=== PATIENT | female | born 1985 | race Caucasian/White ===

== ENCOUNTER 2024-04-25 11:09 | Emergency (ER) | payer OTHER, SELFPAY ==
[2024-04-25 11:14] VITALS: BP 136/74
[2024-04-25] MEDS: XANAX 0.5 MG PO (12:28)
--- NOTE | 2024-04-25 12:51 | ED.GENMED ---
History of Present Illness
<DO Jimi Fuentes Last Filed: 04/25/24 13:06>
General
Chief Complaint: Anxiety
Time Seen by Provider: 04/25/24 11:53
<CHARLES Snow Jr. Last Filed: 04/25/24 13:36>
General
Source: patient
Exam Limitations: none
Nursing documentation reviewed up to this point in time: agreed with
History of Present Illness
History of Present Illness:
38-year-old female presenting to the emergency department today with concerns of feeling anxious over the past few months off and on worsening over the past day has had some chest tightness and shortness of breath but believes this is likely from
anxiety. Denies any nausea vomiting or recent illness. Does have a history of anxiety.
Review of Systems
<CHARLES Snow Jr. Last Filed: 04/25/24 13:36>
Review of Systems
Allergies reviewed?: Yes
All Other Systems: ROS reviewed and negative except as documented in HPI and ROS
Phy Exam
<CHARLES Snow Jr. Last Filed: 04/25/24 13:36>
Physical Exam
Physical Exam:
GENERAL: Alert , in no apparent distress
EYE: pupils equal and reactive
NECK: Supple, no significant adenopathy.
ENT: o/p clr, mmm.
CARDIAC: Regular rate and rhythm .
LUNGS: Clear breath sounds bilaterally, no acute respiratory distress, no wheezes/rales/rhonchi
ABDOMEN: Soft, without focal tenderness, no r/g, no cvat
NEUROLOGICAL: Alert and oriented, no focal neuro deficits
SKIN: Warm and dry, skin intact.
MUSCULOSKELETAL: No edema, well perfused.
PSYCH: Normal and appropriate interaction.
Course
<DO Jimi Fuentes Last Filed: 04/25/24 13:06>
Orders/Labs/Results
Orders:
Orders
04/25/24 11:09
Electrocardiogram (*1) Urgent
Reason for Study: Shortness of Breath
EKG- Treatment ONCE
04/25/24 12:03
Alprazolam [Xanax] 0.5 mg PO NOW STA
Vital Signs
Initial and Last Documented VS:
Initial Vital Signs
Temp Pulse Resp BP Pulse Ox
97.9 F 74 16 136/74 98
04/25/24 11:14 04/25/24 11:14 04/25/24 11:14 04/25/24 11:14 04/25/24 11:14
Last Documented Vital Signs
Temp Pulse Resp BP Pulse Ox
97.9 F 74 18 136/74 98
04/25/24 11:14 04/25/24 11:14 04/25/24 12:30 04/25/24 11:14 04/25/24 11:14
<Gerry Urbano Jr., PA-C - Last Filed: 04/25/24 13:36>
Orders/Labs/Results
Orders:
Orders
04/25/24 11:09
Electrocardiogram (*1) Urgent
Reason for Study: Shortness of Breath
EKG- Treatment ONCE
04/25/24 12:03
Alprazolam [Xanax] 0.5 mg PO NOW STA
Vital Signs
Initial and Last Documented VS:
Initial Vital Signs
Temp Pulse Resp BP Pulse Ox
97.9 F 74 16 136/74 98
04/25/24 11:14 04/25/24 11:14 04/25/24 11:14 04/25/24 11:14 04/25/24 11:14
Last Documented Vital Signs
Temp Pulse Resp BP Pulse Ox
97.9 F 74 18 136/74 98
04/25/24 11:14 04/25/24 11:14 04/25/24 12:30 04/25/24 11:14 04/25/24 11:14
<Gerry Urbano Jr., PA-C - Last Filed: 04/25/24 13:36>
MDM/Problems Addressed
MDM/Problems Addressed:
38-year-old female presenting to the emergency department today with concerns of anxiety. Given a dose of Xanax here with improvement of symptoms. EKG normal no evidence of emergent pathology advised for close outpatient follow-up return
precautions given.
<Gerry Urbano Jr., PA-C - Last Filed: 04/25/24 13:36>
*Critical Care Note
Total Time (30-74mins, 75-104mins- exclusive of procedures): Not Applicable
ED Attending Note
<Dayne Price DO - Last Filed: 04/25/24 13:06>
-
Portions of this chart may have been created with voice recognition software.� Occasional wrong word or��sound alike� substitutions may have occurred due to the inherent limitations of voice recognition software.
Discharge Plan
Departure
Patient Disposition: Home (Routine Discharge)
Date of Disposition: 04/25/24
Time of Disposition: 13:31
Patient with high blood pressure during this ER visit?: No
Condition: Good
Covid-19: Not Applicable
Discharge Problem:
Anxiety
Instructions: Anxiety, Adult (DC)
Prescriptions:
New
Paxlovid 300 mg (150 mg x 2)-100 mg tablets,dose pack
See Rx Instructions .ROUTE .COMPLEX Qty: 30 0RF
Rx Instructions:
take TWO 150 mg tablets of nirmatrelvir with ONE 100 mg tablet of ritonavir twice daily for 5 days
alprazolam [Xanax] 0.5 mg tablet
0.5 mg PO BID PRN (Reason: anxiety) Qty: 5 0RF
Referrals:
[facility] [Provider Group]
Activity Restrictions/Additional Instructions:
You came to the emergency department today with concerns of symptoms consistent with anxiety. You were given Xanax with improvement of symptoms. You were written a prescription to help over the next few days as you secure follow-up. Return to the
emergency department for any worsening, new or concerning symptoms.
Interventions
Interventions:
*Risk Screen - Suicide Last Done: 04/25/24 11:14
*General Assessment Last Done: 04/25/24 11:14
*Neglect/Abuse Screening Last Done: 04/25/24 11:14
ED-Psychological Assessment Last Done: 04/25/24 11:41
Discharge Date and Time
Print Language: DIVEHI
== END 2024-04-25 14:00 | disposition home or self-care (01) ==
LOC: EMR 11:09
PROVIDERS: EMERGENCY PHYSICIAN Emergency Medicine; FAMILY PHYSICIAN Internal Medicine
DX: F41.9 Anxiety disorder, unspecified (principal)
CPT/HCPCS: 99283; 93005